=== PATIENT | male | born 1995 | race Caucasian/White ===

== ENCOUNTER 2021-11-18 11:08 | Inpatient (IN) | payer OTHER ==
[~2021-11-18] VITALS: Ht 160 cm; Wt 54.4 kg
[~2021-11-18 11:08] MED LIST: KEFLEX CAP 500500 MG PO; MORPHINE SULFAT15 M1 PO; NORCO 5-325 TA1 EACH PO
[2021-11-18 11:49] LABS: RED BLOOD COUNT 4.79 M/UL (4.20-5.50); WHITE BLOOD COUNT 11.5 K/UL (4.5-11.0)
[2021-11-18 12:16] LABS: BUN/CREATININE RATIO 10 (0-10)
[2021-11-19 06:36] LABS: HEMOGLOBIN 14.3 gm/dl (14.0-17.5)
[2021-11-19 07:11] LABS: BUN/CREATININE RATIO 12 (0-10)
[2021-11-19 07:35] LABS: RED BLOOD COUNT 4.31 M/UL (4.20-5.50); WHITE BLOOD COUNT 8.3 K/UL (4.5-11.0)
--- NOTE | 2021-11-20 09:05 | NUR ---
PT STATES HE WANTS TO SIGN OUT AMA SOON HIS RIDE GETS HERE, MADE PT AWARE OF WHAT COULD HAPPEN IF HE WAS TO LEAVE WITHOUT LETTING US FINISHING TAKING CARE OF HIM. HE STATES HE DOES NOT CARE AND THAT IT WILL NOT HAPPEN. MADE DOCTOR AWARE
== END 2021-11-20 09:40 | disposition left against medical advice (07) | DRG 439 ==
LOC: ER1 11:08 → CDU 12:45 → M/S 12:45
PROVIDERS: Physician Assistant; ADMIT Internal Medicine
PROC: B24BZZZ Ultrasonography of Heart with Aorta (ICD-10-PCS; principal; 2021-11-19)
DX: K85.20 Alcohol induced acute pancreatitis without necrosis or infection (principal); E87.2 Acidosis; N17.9 Acute kidney failure, unspecified; F10.10 Alcohol abuse, uncomplicated; Z53.21 Procedure and treatment not carried out due to patient leaving prior to being seen by health care provider; R00.0 Tachycardia, unspecified; F17.210 Nicotine dependence, cigarettes, uncomplicated; R74.01 Elevation of levels of liver transaminase levels; E87.6 Hypokalemia; E16.2 Hypoglycemia, unspecified; Z98.890 Other specified postprocedural states; Z82.49 Family history of ischemic heart disease and other diseases of the circulatory system; Z83.3 Family history of diabetes mellitus
CPT/HCPCS: ECHO; 36415; 74018; 76705; 80053; 82150; 83690; 83735; 85025; 93005; 93306; 96361; 96374; 96375; 96376; 99285; G0480; J1885; J2270; J2405; J2550; J3360; J3411; J3475; J7030